=== PATIENT | male | born 1935 | race Caucasian/White ===

== ENCOUNTER → 2017-05-17 09:02 | Emergency (ER) | payer MEDICARE, MEDICAID ==
[~2017-05-17 09:02] MED LIST: Sulfamethox/Trimethoprim DS 800/160* TAB PO ONE
[2017-05-17 11:59] LABS: Hematocrit 46 % (42-52); Hemoglobin 15.6 g/dl (14.0-18.0); Mean Corpuscular HGB Conc 34 g/dl (31-36); Mean Corpuscular Hemoglobin 30 pg (27-31); Mean Corpuscular Volume 87 fL (80-94); Mean Platelet Volume 6 um3 (7.4-10.4); Red Blood Count 5.26 10^6/ul (4.0-5.4); Red Cell Distribution Width 14 % (10.5-15); White Blood Count 10.3 10^3/ul (3.5-10.8)
--- NOTE | 2017-05-17 12:07 | RAD ---
HISTORY: Weakness COMPARISONS: April 18, 2009 VIEWS: 1: frontal portable view of the chest at 11:32 AM FINDINGS: LINES AND TUBES: None. CARDIOMEDIASTINAL SILHOUETTE: The cardiomediastinal silhouette is normal for portable technique. PLEURA: The costophrenic angles are sharp. No pleural abnormalities are noted. LUNG PARENCHYMA: The lungs are clear. ABDOMEN: The upper abdomen is clear. There is no subphrenic gas. BONES AND SOFT TISSUES: No bone or soft tissue abnormalities are noted. IMPRESSION: NO ACTIVE CARDIOPULMONARY DISEASE.
[2017-05-17 12:15] LABS: Troponin I 0.03 ng/mL (<0.04)
[2017-05-17 12:16] LABS: Albumin 4.2 g/dL (3.2-5.2); BUN/Creatinine Ratio 17.5 (8-20); Calcium 9.6 mg/dL (8.6-10.3); EGFR African American 89.6 (>60); EGFR Non-African American 69.7 (>60); Globulin 2.9 g/dL (2-4); Potassium 3.4 mmol/L (3.5-5.0); Total Bilirubin 0.7 mg/dL (0.2-1.0); Total Protein 7.1 g/dL (6.4-8.9)
--- NOTE | 2017-05-17 12:33 | RAD ---
HISTORY: Weakness COMPARISONS: None TECHNIQUE: Multiple contiguous axial CT scans were obtained of the head without intravenous contrast. FINDINGS: HEMORRHAGE/INFARCT: There is no hemorrhage or acute infarct. MASSES/SHIFT: There is no mass or shift. EXTRA-AXIAL SPACES: There are no extra-axial fluid collections. SULCI AND VENTRICLES: The mild sulci and ventricles are normal in size and position for the patient's stated age. CEREBRUM: There is mild hypoattenuation of the periventricular and subcortical white matter. BRAINSTEM: There are no focal parenchymal abnormalities. CEREBELLUM: There are no focal parenchymal abnormalities. VESSELS: The vessels are grossly normal. PARANASAL SINUSES: The paranasal sinuses are clear. ORBITS: The orbits are unremarkable. BONES AND SOFT TISSUE: No bone or soft tissue abnormalities are noted. OTHER: None IMPRESSION: NO ACUTE INTRACRANIAL PATHOLOGY. MILD DIFFUSE INVOLUTIONAL CHANGE WITH CHRONIC SMALL VESSEL ISCHEMIC CHANGES.
[2017-05-17 12:38] LABS: Urine Bacteria Absent (Absent); Urine Bilirubin Negative (Negative); Urine Glucose Negative (Negative); Urine Nitrite Negative (Negative)
[2017-05-17 13:24] VITALS: BP 107/67
--- NOTE | 2017-05-22 12:42 | ED ---
Kb Wilson Alfonso, scribed for Candelario Monique MD on 05/17/17 at 1209 . Complex/Multi-Sys Presentation - HPI Summary HPI Summary: This patient is a 81 year old M BIBA from [facility] to [facility] accompanied by daughter and granddaughter with a chief complaint of diffuse myalgia since waking up this morning at approximately 0500. The patient rates the aching pain 5/10 in severity. Symptoms aggravated by nothing. Symptoms alleviated by spontaneous resolution. Patient reports tremors, right sided headache, I kept asking for my and she about a year ago, rhinorrhea, cough, and urinary incontinency (chronic). Daughter reports bilateral extremity numbness, progressively worsening confusion which is worse at night and AMS. Patient denies CP, SOB, vomiting, diarrhea, dysuria, and hematuria. He had similar symptoms in the past and was diagnosed with a UTI. He sleeps in a recliner. He denies ETOH use. 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 - History Of Current Complaint Chief Complaint: EDGeneral Time Seen by Provider: 05/17/17 11:14 Hx Obtained From: Patient, Family/Ballistics Expert Onset/Duration: Sudden Onset - 0500 waking up today, Still Present Timing: Constant Character: Dull - aching Aggravating Factor(s): nothing Alleviating Factor(s): spontaneous resolution Associated Signs And Symptoms: Positive: Other - Patient reports tremors, right sided headache, I kept asking for my and she about a year ago, rhinorrhea, cough, and urinary incontinency (chronic). Daughter reports bilateral extremity numbness, progressively worsening confusion which is worse at night and AMS. Patient denies CP, SOB, vomiting, diarrhea, dysuria, and hematuria. - Allergies/Home Medications Allergies/Adverse Reactions: Allergies Allergy/AdvReac Type Severity Reaction Status Date / Time No Known Allergies Allergy Verified 05/30/16 10:57 PMH/Surg Hx/FS Hx/Imm Hx Endocrine/Hematology History: Reports: Hx Diabetes - "borderline" Cardiovascular History: Reports: Hx Coronary Artery Disease - ATHEROSCLEROTIC HEART DISEASE, Hx Hypertension, Other Cardiovascular Problems/Disorders - HX OF RIGHT CAROTID ENDARARECTOMY / CHOLESTEROL CONTROL WITH MEDS Respiratory History: Reports: Hx Sleep Apnea GI History: Reports: Hx Hiatal Hernia - HX OF, Hx Irritable Bowel - HX OF - NO PROBLEMS NOW History: Reports: Other Problems/Disorders Musculoskeletal History: Reports: Hx Arthritis - BACK, BILATERAL ARMS AND LEGS, Hx Tendonitis Sensory History: Reports: Hx Cataracts - HX OF, Hx Contacts or Glasses - GLASSES , Hx Glaucoma - LEFT Denies: Hx Hearing Aid Opthamlomology History: Reports: Hx Cataracts - HX OF, Hx Contacts or Glasses - GLASSES, Hx Glaucoma - LEFT Neurological History: Reports: Hx Headaches Psychiatric History: Reports: Hx Depression - HX OF WHEN RECENTLY - NO PROBLEMS NOW - Surgical History Surgery Procedure, Year, and Place: hernia, appy, carotid stents and cleaning Hx Anesthesia Reactions: Yes - WITH ONE THERE WAS SOME HALLUCINATIONS Infectious Disease History: Yes Infectious Disease History: Denies: Traveled Outside the [place] in Last 30 Days - Family History Known Family History: Positive: Other - Rheumatoid arthritis - Social History Alcohol Use: None Substance Use Type: Reports: None Smoking Status (MU): Former Smoker Type: Cigarettes Have You Smoked in the Last Year: No Review of Systems Positive: Other - Tremors. Negative: Fever, Chills Negative: Erythema Positive: Nasal Discharge. Negative: Sore Throat Negative: Chest Pain Positive: Cough. Negative: Shortness Of Breath Negative: Abdominal Pain, Vomiting, Diarrhea, Nausea Positive: incontinence. Negative: dysuria, hematuria Positive: Myalgia. Negative: Edema Negative: Rash Neurological: Other - I kept asking for my and she about a year ago, bilateral extremity numbness, progressively worsening confusion which is worse at night and AMS; Negative dizziness Positive: Headache - right sided All Other Systems Reviewed And Are Negative: Yes Physical Exam - Summary Physical Exam Summary: Constitutional: Well-developed, Well-nourished, Alert. (-) Distressed Skin: Warm, Dry, urinary incontinence on gown. HENT: Normocephalic; Atraumatic Eyes: Conjunctiva normal Neck: Musculoskeletal ROM normal neck. (-) JVD, (-) Stridor, (-) Tracheal deviation Cardio: Rhythm regular, rate normal, Heart sounds normal; Intact distal pulses; The pedal pulses are 2+ and symmetric. Radial pulses are 2+ and symmetric. (-) Murmur Pulmonary/Chest wall: Effort normal. (-) Respiratory distress, (-) Wheezes, (-) Rales Abd: Soft, mild suprapubic tenderness, (-) Distension, (-) Guarding, (-) Rebound Musculoskeletal: (-) Edema Lymph: (-) Cervical adenopathy Neuro: Alert, Oriented x3 Psych: Mood and affect Normal Triage Information Reviewed: Yes Vital Signs On Initial Exam: Initial Vitals Temp Pulse Resp BP Pulse Ox 98.2 F 75 15 113/72 100 05/17/17 09:12 05/17/17 09:12 05/17/17 09:12 05/17/17 09:12 05/17/17 09:12 Vital Signs Reviewed: Yes - Anne Coma Scale Coma Scale Total: 15 Diagnostics - Vital Signs Vital Signs Temp Pulse Resp BP Pulse Ox 05/17/17 09:12 98.2 F 75 15 113/72 100 - Laboratory Lab Results: Lab Results 05/17/17 Range/Units 11:45 WBC 10.3 (3.5-10.8) 10^3/ul RBC 5.26 (4.0-5.4) 10^6/ul Hgb 15.6 (14.0-18.0) g/dl Hct 46 (42-52) % MCV 87 (80-94) fL MCH 30 (27-31) pg MCHC 34 (31-36) g/dl RDW 14 (10.5-15) % Plt Count 221 (150-450) 10^3/ul MPV 6 L (7.4-10.4) um3 Neut % (Auto) 65.1 (38-83) % Lymph % (Auto) 24.8 L (25-47) % Slope % (Auto) 7.7 (1-9) % Eos % (Auto) 1.4 (0-6) % Baso % (Auto) 1.0 (0-2) % Absolute Neuts (auto) 6.7 (1.5-7.7) 10^3/ul Absolute Lymphs (auto) 2.6 (1.0-4.8) 10^3/ul Absolute Monos (auto) 0.8 (0-0.8) 10^3/ul Absolute Eos (auto) 0.1 (0-0.6) 10^3/ul Absolute Basos (auto) 0.1 (0-0.2) 10^3/ul Absolute Nucleated RBC 0 10^3/ul Nucleated RBC % 0 Result Diagrams: 05/17/17 11:45 05/17/17 11:45 Lab Statement: Any lab studies that have been ordered have been reviewed, and results considered in the medical decision making process. - Radiology CXR Radiology Interpretation Completed By: Radiologist - NO ACTIVE CARDIOPULMONARY DISEASE. ED physician has reviewed this radiology report and agrees. - CT Brain CT Interpretation Completed By: Radiologist - NO ACUTE INTRACRANIAL PATHOLOGY. MILD DIFFUSE INVOLUTIONAL CHANGE WITH CHRONIC SMALL VESSEL ISCHEMIC CHANGES. ED physician has reviewed this radiology report and agrees. - EKG 1147 Cardiac Rate: NL - BPM 75 EKG Rhythm: Sinus Rhythm EKG Interpretation: No STEMI Complex Multi-Symp Course/Dx Assessment/Plan: This patient is a 81 year old M BIBA from [facility] to [facility] accompanied by daughter and granddaughter with a chief complaint of diffuse myalgia since waking up this morning at approximately 0500. The patient rates the aching pain 5/10 in severity. Symptoms aggravated by nothing. Symptoms alleviated by spontaneous resolution. Patient reports tremors, right sided headache, I kept asking for my and she about a year ago, rhinorrhea, cough, and urinary incontinency (chronic). Daughter reports bilateral extremity numbness, progressively worsening confusion which is worse at night and AMS. Patient denies CP, SOB, vomiting, diarrhea, dysuria, and hematuria. He had similar symptoms in the past and was diagnosed with a UTI. He sleeps in a recliner. He denies ETOH use. 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 An EKG reveals NSR. CXR reveals NO ACTIVE CARDIOPULMONARY DISEASE. ED physician has reviewed this radiology report and agrees. Brain CT reveals NO ACUTE INTRACRANIAL PATHOLOGY. MILD DIFFUSE INVOLUTIONAL CHANGE WITH CHRONIC SMALL VESSEL ISCHEMIC CHANGES. ED physician has reviewed this radiology report and agrees. Patient is nontoxic appearing. Urine cultures are pending. Patient will be discharged with prescription for Bactrim and follow up from PCP. The patient is agreeable with this plan. - Diagnoses Provider Diagnoses: Dementia, suspected fever, Urinary incontinence Discharge - Discharge Plan Condition: Stable Disposition: HOME Prescriptions: Sulfamethox/Trimethoprim DS* [Bactrim DS 800/160 TAB*] 1 tab PO BID #6 tab Patient Education Materials: Urinary Incontinence (ED), Dementia (ED) Referrals: Arjun Rowell MD [Primary Care Provider] - 3 Days Additional Instructions: RETURN TO THE EMERGENCY DEPARTMENT FOR CHANGING OR WORSENING SYMPTOMS. The documentation as recorded by the Kb ray Alfonso accurately reflects the service I personally performed and the decisions made by me, Candelario Monique MD.
== END | disposition home or self-care (01) ==
LOC: ED 09:02
DX: F03.90 Unspecified dementia, unspecified severity, without behavioral disturbance, psychotic disturbance, mood disturbance, and anxiety (principal); R32 Unspecified urinary incontinence; R50.9 Fever, unspecified
CPT/HCPCS: 36415; 70450; 71010; 80053; 81003; 81015; 83605; 84484; 85025; 87086; 93005; 99283; A9270-GY

== ENCOUNTER 2017-07-26 08:14 | Emergency (ER) | payer MEDICARE, MEDICAID ==
[2017-07-26] MEDS ORDERED: Acetaminophen TAB* 325 MG PO ONE (08:36)
--- NOTE | 2017-07-26 09:08 | RAD ---
HISTORY: Right hip pain, fall COMPARISONS: December 17, 2016 VIEWS: 4, Frontal view of the pelvis with frontal and frog-leg views of the right hip FINDINGS: BONE DENSITY: There is diffuse osteopenia. BONES: There is no displaced fracture. JOINTS: There is osteoarthritis of the hips and SI joints bilaterally. ALIGNMENT: There is no dislocation. SOFT TISSUES: There is peripheral arterial calcification. OTHER FINDINGS: Degenerative changes are noted of the spine IMPRESSION: 1. OSTEOPENIA. 2. OSTEOARTHRITIS. 3. PERIPHERAL ARTERIAL DISEASE. 4. NO RADIOGRAPHIC EVIDENCE FOR HIP FRACTURE. X-RAYS MAY BE NEGATIVE WITH NONDISPLACED HIP FRACTURE, IF THERE IS PERSISTENT CLINICAL CONCERN, RECOMMEND CONSIDERATION OF MRI. IN THE SETTING OF CONTRAINDICATION TO MRI OR LIMITATION IN EMERGENT ACCESS TO MRI, CT WOULD BE SUGGESTED.
[2017-07-26 11:33] VITALS: BP 112/66
--- NOTE | 2017-07-26 20:30 | ED ---
Marcio Wilson Gabriel, scribed for Carisa Lawton MD on 07/26/17 at 0906 . Lower Extremity - HPI Summary HPI Summary: This patient is a 82 year old M BIBA to [facility] accompanied by daughter and son in law with a chief complaint of hip pain since 3 nights ago. The patient rates the pain 3/10 in severity in the back and a 8/10 in the hip. Patient reports LE weakness, back pain, and diffuse ABD pain. Patient denies CP, and SOB. Patient states he just got out of bed 3 nights ago and had a bad taste in his mouth and asked the girl who walked by for ice water. Then he leaned on the door because he felt woozy and his legs collapsed, he states he did not hit his head on the fall. Patient has had previous falls and ambulates with a cane. 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 Mechanism Of Injury: Fall From A Standing Position Onset of Pain: Immediate Onset/Duration: Days - 3 Severity Initially: Mild Severity Currently: Mild Pain Intensity: 5 Pain Scale Used: 0-10 Numeric Timing: Constant Location: Other - at left hip Character Of Pain: Aching Associated Signs And Symptoms: Positive: Negative - CP and SOB, Other - LE weakness, back pain, and diffuse ABD pain Aggravating Factor(s): Movement Alleviating Factor(s): Nothing Able to Bear Weight: No - Allergies/Home Medications Allergies/Adverse Reactions: Allergies Allergy/AdvReac Type Severity Reaction Status Date / Time No Known Allergies Allergy Verified 07/26/17 08:21 PMH/Surg Hx/FS Hx/Imm Hx Previously Healthy: No Endocrine/Hematology History: Reports: Hx Diabetes - "borderline" Cardiovascular History: Reports: Hx Coronary Artery Disease - ATHEROSCLEROTIC HEART DISEASE, Hx Hypertension, Other Cardiovascular Problems/Disorders - HX OF RIGHT CAROTID ENDARARECTOMY / CHOLESTEROL CONTROL WITH MEDS Respiratory History: Reports: Hx Sleep Apnea GI History: Reports: Hx Hiatal Hernia - HX OF, Hx Irritable Bowel - HX OF - NO PROBLEMS NOW History: Reports: Other Problems/Disorders Musculoskeletal History: Reports: Hx Arthritis - BACK, BILATERAL ARMS AND LEGS, Hx Tendonitis Sensory History: Reports: Hx Cataracts - HX OF, Hx Contacts or Glasses - GLASSES , Hx Glaucoma - LEFT Denies: Hx Hearing Aid Opthamlomology History: Reports: Hx Cataracts - HX OF, Hx Contacts or Glasses - GLASSES, Hx Glaucoma - LEFT Neurological History: Reports: Hx Headaches Psychiatric History: Reports: Hx Depression - HX OF WHEN RECENTLY - NO PROBLEMS NOW - Surgical History Surgery Procedure, Year, and Place: hernia, appy, carotid stents and cleaning Hx Anesthesia Reactions: Yes - WITH ONE THERE WAS SOME HALLUCINATIONS Infectious Disease History: No Infectious Disease History: Denies: Traveled Outside the [place] in Last 30 Days - Family History Known Family History: Positive: Other - Rheumatoid arthritis Negative: Cardiac Disease, Diabetes Family History: No cancer - Social History Lives: At [facility] Alcohol Use: None Substance Use Type: Reports: None Smoking Status (MU): Former Smoker Type: Cigarettes Have You Smoked in the Last Year: No Review of Systems Negative: Chest Pain Negative: Shortness Of Breath Positive: Abdominal Pain - diffuse Positive: Other - hip pain Positive: Weakness - in LE All Other Systems Reviewed And Are Negative: Yes Physical Exam - Summary Physical Exam Summary: Appearance: Well-appearing, mild pain distress, Well-nourished Skin: Warm, color reflects adequate perfusion Head: Normal Head/Face Eyes: Conjunctiva clear ENT: Normal appearance Neck: Supple Respiratory: Lungs clear, Normal breath sounds, no respiratory distress Cardio: RRR, No murmur, pulses normal, brisk capillary refill Abdomen: soft, nontender Bowel sounds: present Musculoskeletal: Strength Intact/ ROM intact, Lateral part of right hip is tender with some ecchymosis Neuro: Alert, muscle tone normal, ED: facial symmetry, speech normal, sensory/ motor intact Detailed Neuro Exam: A&Ox3, CN II-XII intact, Motor function 5/5, Sensations intact, Gait WNL Psychological: Normal Triage Information Reviewed: Yes Vital Signs On Initial Exam: Initial Vitals Temp Pulse Resp BP Pulse Ox 98.1 F 75 18 116/73 98 07/26/17 08:17 07/26/17 08:17 07/26/17 08:17 07/26/17 08:17 07/26/17 08:17 Vital Signs Reviewed: Yes - Lemmon Coma Scale Coma Scale Total: 15 Diagnostics - Vital Signs Vital Signs Temp Pulse Resp BP Pulse Ox 07/26/17 08:45 71 98 07/26/17 08:17 98.1 F 75 18 116/73 98 - Laboratory Lab Statement: Any lab studies that have been ordered have been reviewed, and results considered in the medical decision making process. - Radiology hip xray Radiology Interpretation Completed By: Radiologist - 1. OSTEOPENIA. 2. OSTEOARTHRITIS. 3. PERIPHERAL ARTERIAL DISEASE. 4. NO RADIOGRAPHIC EVIDENCE FOR HIP FRACTURE. X-RAYS MAY BE NEGATIVE WITH NONDISPLACED HIP FRACTURE, IF THERE IS PERSISTENT CLINICAL CONCERN, RECOMMEND CONSIDERATION OF MRI. IN THE SETTING OF CONTRAINDICATION TO MRI OR LIMITATION IN EMERGENT ACCESS TO MRI, CT WOULD BE SUGGESTED. ED physician has reviewed this radiology report. Re-Evaluation - Re-Evaluation First Eval Re-Evaluation Time: 11:28 Change: Unchanged Comment: Pt is ambulating to the bathroom, pain is controlled, and was informed of results. Lower Extremity Course/Dx - Course Assessment/Plan: Hip Xray reveals, per radiologist, 1. OSTEOPENIA. 2. OSTEOARTHRITIS. 3. PERIPHERAL ARTERIAL DISEASE. 4. NO RADIOGRAPHIC EVIDENCE FOR HIP FRACTURE. X-RAYS MAY BE NEGATIVE WITH NONDISPLACED. HIP FRACTURE, IF THERE IS PERSISTENT CLINICAL CONCERN, RECOMMEND CONSIDERATION OF MRI. IN. THE SETTING OF CONTRAINDICATION TO MRI OR LIMITATION IN EMERGENT ACCESS TO MRI, CT WOULD. BE SUGGESTED. In the ED course the patient was given Tylenol. Patient will be discharged and follow up from Dr. Aguilera. The patient is agreeable with this plan. - Diagnoses Provider Diagnoses: Contusion, hip Discharge - Discharge Plan Condition: Stable Disposition: HOME Patient Education Materials: Hip Contusion (ED) Referrals: Aleksandra Aguilera MD [Primary Care Provider] - The documentation as recorded by the Marcio ray Gabriel accurately reflects the service I personally performed and the decisions made by Jered morrow Barbara J, MD.
== END 2017-07-26 11:32 | disposition home or self-care (01) ==
LOC: ED 08:14
DX: S70.01XA Contusion of right hip, initial encounter (principal); W19.XXXA Unspecified fall, initial encounter; Y93.9 Activity, unspecified; Y92.9 Unspecified place or not applicable; Y99.9 Unspecified external cause status; M85.88 Other specified disorders of bone density and structure, other site; M16.11 Unilateral primary osteoarthritis, right hip; I73.9 Peripheral vascular disease, unspecified; Z87.891 Personal history of nicotine dependence
CPT/HCPCS: 99282; A9270-GY

== ENCOUNTER 2018-03-11 05:07 | Emergency (ER) | payer MEDICARE, MEDICAID ==
[2018-03-11] MEDS ORDERED: traMADol TAB* 50 MG PO ONE (05:25)
--- NOTE | 2018-03-11 05:27 | ED ---
Complex/Multi-Sys Presentation - HPI Summary HPI Summary: This is flor Harden documenting for attending Dr. Eric Marmolejo MD. A 82 y/o male EMANUEL presents to ED c/o back pain reaching 7/10 in severity. Additionally c/o shoulder pain and headache. As per triage, "Patient arrived via EMS from [facility]. Patient reports falling out of bed then getting back in bed and sleeping for some time. Upon waking, patient reports back, shoulder and head pain". According to the patient, all four corners of his abdomen are painful. It was noted that the patient is diaphoretic (after bed). Patient lives in custodial. Currently on no blood thinners. - History Of Current Complaint Chief Complaint: EDGeneral Hx Obtained From: Patient Onset/Duration: Sudden Onset, Still Present Timing: Constant Severity Currently: Severe Severity Initially: Severe Aggravating Factor(s): NOTHING Alleviating Factor(s): NOTHING Associated Signs And Symptoms: Positive: Headache, Abdominal Pain, Back Pain, Diaphoresis. Negative: Fever - Allergies/Home Medications Allergies/Adverse Reactions: Allergies Allergy/AdvReac Type Severity Reaction Status Date / Time No Known Allergies Allergy Verified 07/26/17 08:21 PMH/Surg Hx/FS Hx/Imm Hx Endocrine/Hematology History: Reports: Hx Diabetes - "borderline" Cardiovascular History: Reports: Hx Coronary Artery Disease, Hx Hypercholesterolemia, Hx Hypertension, Other Cardiovascular Problems/Disorders - HX OF RIGHT CAROTID ENDARTERECTOMY Respiratory History: Reports: Hx Sleep Apnea GI History: Reports: Hx Hiatal Hernia, Hx Irritable Bowel History: Reports: Other Problems/Disorders Musculoskeletal History: Reports: Hx Arthritis - BACK, BILATERAL ARMS AND LEGS, Hx Tendonitis Sensory History: Reports: Hx Cataracts - HX OF, Hx Contacts or Glasses - GLASSES , Hx Glaucoma - LEFT Denies: Hx Hearing Aid Opthamlomology History: Reports: Hx Cataracts - HX OF, Hx Contacts or Glasses - GLASSES, Hx Glaucoma - LEFT Neurological History: Reports: Hx Headaches Psychiatric History: Reports: Hx Depression - HX OF WHEN - NO PROBLEMS NOW - Surgical History Surgery Procedure, Year, and Place: hernia, appy, carotid stents and cleaning Hx Anesthesia Reactions: Yes - WITH ONE THERE WAS SOME HALLUCINATIONS Infectious Disease History: No Infectious Disease History: Denies: Traveled Outside the [place] in Last 30 Days - Family History Known Family History: Positive: Other - Rheumatoid arthritis Negative: Cardiac Disease, Diabetes Family History: No cancer - Social History Alcohol Use: None Substance Use Type: Reports: None Smoking Status (MU): Former Smoker Type: Cigarettes Have You Smoked in the Last Year: No Review of Systems Positive: Skin Diaphoresis. Negative: Fever Positive: Abdominal Pain Positive: Other - POSITIVE: back and shoulder pain Positive: Headache All Other Systems Reviewed And Are Negative: Yes Physical Exam - Summary Physical Exam Summary: VITAL SIGNS: Reviewed. GENERAL: Patient is a well-developed and nourished male who is lying comfortable in the stretcher. Patient is not in any acute respiratory distress. HEAD AND FACE: No signs of trauma. No ecchymosis, hematomas or skull depressions. No sinus tenderness. EYES: PERRLA, EOMI x 2, No injected conjunctiva, no nystagmus. EARS: Hearing grossly intact. Ear canals and tympanic membranes are within normal limits. MOUTH: Oropharynx within normal limits. NECK: Supple, trachea is midline, no adenopathy, no JVD, no carotid bruit, no c- spine tenderness, neck with full ROM. CHEST: Symmetric, mild tenderness on right chest wall LUNGS: Clear to auscultation bilaterally. No wheezing or crackles. CVS: Regular rate and rhythm, S1 and S2 present, no murmurs or gallops appreciated. ABDOMEN: Soft, non-tender. No signs of distention. No rebound no guarding, and no masses palpated. Bowel sounds are normal. EXTREMITIES: FROM in all major joints, no edema, no cyanosis or clubbing. No hip pain. Patient is able to both both extremities. NEURO: Alert and oriented x 3. No acute neurological deficits. Speech is normal and follows commands. SKIN: Dry and warm GCS: 15 Triage Information Reviewed: Yes Vital Signs On Initial Exam: Initial Vitals Temp Pulse Resp BP Pulse Ox 98.2 F 79 20 146/81 96 03/11/18 05:09 03/11/18 05:09 03/11/18 05:09 03/11/18 05:09 03/11/18 05:09 Vital Signs Reviewed: Yes Diagnostics - Vital Signs Vital Signs Temp Pulse Resp BP Pulse Ox 03/11/18 05:09 98.2 F 79 20 146/81 96 - Laboratory Lab Statement: Any lab studies that have been ordered have been reviewed, and results considered in the medical decision making process. - Radiology CXR Radiology Interpretation Completed By: ED Physician - No acute process. Pending official report. - CT BRAIN CT CT Interpretation Completed By: Radiologist - No acute findings. ED physician reviewed this radiology report. Re-Evaluation - Re-Evaluation First Eval Re-Evaluation Time: 06:22 Comment: Patient is feeling much better. Complex Multi-Symp Course/Dx Course Of Treatment: 82 y/o male EMANUEL presents to ED c/o back pain reaching 7/ 10 in severity. Additionally c/o shoulder pain and headache. A CXR revealed no acute process. A CT Brain revealed no acute findings. In the ED course, the patient recieved Tramadol. During reevaluation, the patient revealed that he felt much better. Patient will be discharged with a diagnosis fall with no injury and contusion. Patient is to follow up with PCP in 1-2 days. Pt is agreeable with this plan. - Diagnoses Provider Diagnoses: Fall with no injury, Contusion Discharge - Sign-Out/Discharge Documenting (check all that apply): Patient Departure - DISCHARGE - Discharge Plan Condition: Stable Disposition: HOME Prescriptions: traMADol TAB* [Ultram*] 50 mg PO Q6HR PRN #20 tab MDD 4 PRN Reason: Pain Patient Education Materials: Contusion in Adults (ED), Fall Prevention (ED) Referrals: Aleksandra Aguilera MD [Primary Care Provider] - 2 Days Additional Instructions: RETURN TO ED FOR ANY NEW OR WORSENING SYMPTOMS.
[2018-03-11 06:55] VITALS: BP 134/90
--- NOTE | 2018-03-11 07:33 | RAD ---
HISTORY: fall COMPARISONS: May 17, 2017 VIEWS: 2: frontal portable view of the chest at 6:03 AM FINDINGS: LINES AND TUBES: None. CARDIOMEDIASTINAL SILHOUETTE: The cardiomediastinal silhouette is stable. PLEURA: The costophrenic angles are sharp. No pleural abnormalities are noted. LUNG PARENCHYMA: There is stable mild chronic reticular markings markings consistent with mild chronic interstitial disease. ABDOMEN: The upper abdomen is clear. There is no subphrenic gas. BONES AND SOFT TISSUES: No bone or soft tissue abnormalities are noted. IMPRESSION: NO ACTIVE CARDIOPULMONARY DISEASE. R0
--- NOTE | 2018-03-11 07:57 | RAD ---
HISTORY: fall, head pain COMPARISONS: May 17, 2017 TECHNIQUE: Multiple contiguous axial CT scans were obtained of the head without intravenous contrast. FINDINGS: HEMORRHAGE/INFARCT: There is no hemorrhage or acute infarct. MASSES/SHIFT: There is no mass or shift. EXTRA-AXIAL SPACES: There are no extra-axial fluid collections. SULCI AND VENTRICLES: There is diffuse and proportional enlargement of the sulci and ventricles. CEREBRUM: There is hypoattenuation of the periventricular and subcortical white matter. BRAINSTEM: There are no focal parenchymal abnormalities. CEREBELLUM: There are no focal parenchymal abnormalities. VESSELS: There is calcification of the cavernous segments of the internal carotid arteries bilaterally. PARANASAL SINUSES: The paranasal sinuses are clear. ORBITS: The orbits are unremarkable. BONES AND SOFT TISSUE: No bone or soft tissue abnormalities are noted. OTHER: None IMPRESSION: NO ACUTE INTRACRANIAL PATHOLOGY. DIFFUSE INVOLUTIONAL CHANGE WITH CHRONIC SMALL VESSEL ISCHEMIC CHANGES. R0
== END 2018-03-11 06:56 | disposition home or self-care (01) ==
LOC: ED 05:07
DX: M54.9 Dorsalgia, unspecified (principal); M25.519 Pain in unspecified shoulder; R51 Headache; Z91.81 History of falling; Z87.891 Personal history of nicotine dependence
CPT/HCPCS: 70450; 71045; 99283; A9270-GY

== ENCOUNTER → 2019-02-27 03:30 | Emergency (ER) | payer MEDICARE, OTHER ==
--- NOTE | 2019-02-27 04:33 | ED ---
Adult Trauma - HPI Summary HPI Summary: Patient is a 83 y/o M presenting to ED via EMS from [facility] after mechanical fall. It is reported that the patient was getting up to go to the bathroom when he tripped and fell, hitting his right side of head and right knee. He is on Plavix. Patient is unsure of LOC but endorses dizziness. He had complaints of pain at neck as well. No nausea reported. Hx of chronic back pain , knee pain. Family member reports many falls, patient does not use cane or walker as supposed to. Patient is alert and oriented x 1, Hx of dementia, level 5 caveat. On triage, pain is rated 7/10, movement of right knee aggravates. Home medications and allergies are reviewed. - History of Current Complaint Chief Complaint: EDFall Stated Complaint: FALL PER EMS Time Seen by Provider: 02/27/19 04:24 Hx Obtained From: Family/Motorboat Mechanic Inboard/Outboard Hx From Patient Unobtainable Due To: Dementia Mechanism of Injury: Fall Loss of Consciousness: unsure Restraints: None Onset/Duration: Still Present Onset of Pain: Prior to Arrival Current Severity: Severe Pain Intensity: 7 Pain Scale Used: 0-10 Numeric Location: Head, Neck, Other - right knee Aggravating Factor(s): Movement - of right knee Alleviating Factor(s): Nothing Associated Signs & Symptoms: Positive: Other: - dizziness. Negative: Nausea/ Vomiting - Allergy/Home Medications Allergies/Adverse Reactions: Allergies Allergy/AdvReac Type Severity Reaction Status Date / Time No Known Allergies Allergy Verified 07/26/17 08:21 PMH/Surg Hx/FS Hx/Imm Hx Endocrine/Hematology History: Reports: Hx Diabetes - "borderline" Cardiovascular History: Reports: Hx Coronary Artery Disease, Hx Hypercholesterolemia, Hx Hypertension, Other Cardiovascular Problems/Disorders - HX OF RIGHT CAROTID ENDARTERECTOMY Respiratory History: Reports: Hx Sleep Apnea GI History: Reports: Hx Hiatal Hernia, Hx Irritable Bowel History: Reports: Other Problems/Disorders Musculoskeletal History: Reports: Hx Arthritis - BACK, BILATERAL ARMS AND LEGS, Hx Tendonitis Sensory History: Reports: Hx Cataracts - HX OF, Hx Contacts or Glasses - GLASSES , Hx Glaucoma - LEFT Denies: Hx Hearing Aid Opthamlomology History: Reports: Hx Cataracts - HX OF, Hx Contacts or Glasses - GLASSES, Hx Glaucoma - LEFT Neurological History: Reports: Hx Headaches Psychiatric History: Reports: Hx Depression - HX OF WHEN - NO PROBLEMS NOW - Surgical History Surgery Procedure, Year, and Place: hernia, appy, carotid stents and cleaning Hx Anesthesia Reactions: Yes - WITH ONE THERE WAS SOME HALLUCINATIONS Infectious Disease History: No Infectious Disease History: Denies: Traveled Outside the [place] in Last 30 Days - Family History Known Family History: Positive: Other - Rheumatoid arthritis Negative: Cardiac Disease, Diabetes Family History: No cancer - Social History Alcohol Use: None Substance Use Type: Reports: None Smoking Status (MU): Former Smoker Type: Cigarettes Have You Smoked in the Last Year: No Review of Systems Negative: Nausea Musculoskeletal: Other - positive - fall, head injury, right knee injury, neck pain Neurological: Other - positive - dizziness All Other Systems Reviewed And Are Negative: Yes Physical Exam - Summary Physical Exam Summary: VITAL SIGNS: Reviewed. GENERAL: Patient is a well-developed and nourished male who is lying comfortable in the stretcher. Patient is not in any acute respiratory distress. HEAD AND FACE: No signs of trauma. No ecchymosis, hematomas or skull depressions. No sinus tenderness. EYES: PERRLA, EOMI x 2, No injected conjunctiva, no nystagmus. EARS: Hearing grossly intact. Ear canals and tympanic membranes are within normal limits. MOUTH: Oropharynx within normal limits. NECK: Supple, trachea is midline, no adenopathy, no JVD, no carotid bruit, no c- spine tenderness, neck with full ROM CHEST: Symmetric, no tenderness at palpation LUNGS: Clear to auscultation bilaterally. No wheezing or crackles. CVS: Regular rate and rhythm, S1 and S2 present, no murmurs or gallops appreciated. ABDOMEN: Soft, non-tender. No signs of distention. No rebound no guarding, and no masses palpated. Bowel sounds are normal. EXTREMITIES: FROM in all major joints, no edema, no cyanosis or clubbing. NEURO: Alert and oriented x 3. No acute neurological deficits. Speech is normal and follows commands. SKIN: Dry and warm Triage Information Reviewed: Yes Vital Signs On Initial Exam: Initial Vitals Temp Pulse Resp BP Pulse Ox 97.5 F 77 18 138/88 98 02/27/19 03:32 02/27/19 03:32 02/27/19 03:32 02/27/19 03:32 02/27/19 03:32 Vital Signs Reviewed: Yes Diagnostics - Vital Signs Vital Signs Temp Pulse Resp BP Pulse Ox 02/27/19 04:00 71 100 02/27/19 03:44 72 113/76 100 02/27/19 03:40 74 100 02/27/19 03:32 97.5 F 77 18 138/88 98 - Laboratory Lab Statement: Any lab studies that have been ordered have been reviewed, and results considered in the medical decision making process. - Radiology right forearm x-ray Radiology Interpretation Completed By: ED Physician Summary of Radiographic Findings: No fracture, pending official report. - CT BRAIN CT CT Interpretation Completed By: Radiologist Summary of CT Findings: IMPRESSION: No acute intracranial findings. THIS REPORT WAS REVIEWED BY DR. RICH. CERVICAL SPINE CT CT Interpretation Completed By: Radiologist Summary of CT Findings: IMPRESSION: 1. No acute fracture involving the cervical vertebral bodies or posterior. elements. 2. No pathologic subluxation. 3. Multilevel degenerative cervical disc disease and facet disease. No. significant central canal stenosis. Variable degrees of neural foraminal. narrowing secondary to degenerative changes of the uncovertebral joints and. facet joints. THIS REPORT WAS REVIEWED BY DR. RICH. Adult Trauma Course/Dx - Course Course Of Treatment: Patient is a 83 y/o M presenting to ED via EMS from [facility] after mechanical fall. It is reported that the patient was getting up to go to the bathroom when he tripped and fell, hitting his right side of head and right knee. He is on Plavix. Patient is unsure of LOC but endorses dizziness. He had complaints of pain at neck as well No nausea reported. Family member reports many falls, patient does not use cane or walker as supposed to. Patient is alert and oriented x 1, Hx of dementia, level 5 caveat. Physical exam unremarkable. Right forearm x-ray was negative. CERVICAL SPINE CT IMPRESSION: 1. No acute fracture involving the cervical vertebral bodies or posterior. elements. 2. No pathologic subluxation. 3. Multilevel degenerative cervical disc disease and facet disease. No. significant central canal stenosis. Variable degrees of neural foraminal. narrowing secondary to degenerative changes of the uncovertebral joints and. facet joints. BRAIN CT IMPRESSION: No acute intracranial findings. Patient will be discharged to home with PCP follow up. - Diagnoses Provider Diagnoses: Fall Discharge - Sign-Out/Discharge Documenting (check all that apply): Patient Departure - discharge Patient Received Moderate/Deep Sedation with Procedure: No - Discharge Plan Condition: Stable Disposition: HOME Patient Education Materials: Fall Prevention for Older Adults (ED) Referrals: Myrna Zimmerman DO [Primary Care Provider] - 3 Days Additional Instructions: RETURN TO ED FOR ANY NEW OR WORSENING SYMPTOMS. FOLLOW UP WITH YOUR PRIMARY CARE PHYSICIAN WITHIN THREE DAYS. - Attestation Statements Document Initiated by Scribe: Yes Documenting Scribe: NACHO ADAMS Provider For Whom Scribe is Documenting (Include Credential): CLEM RICH MD Scribe Attestation: INACHO, scribed for CLEM RICH MD on 02/27/19 at 0652. Status of Scribe Document: Ready
[2019-02-27 06:46] VITALS: BP 127/84
== END | disposition home or self-care (01) ==
LOC: ED 03:30
DX: S09.90XA Unspecified injury of head, initial encounter (principal); M25.561 Pain in right knee; W01.10XA Fall on same level from slipping, tripping and stumbling with subsequent striking against unspecified object, initial encounter; Y92.009 Unspecified place in unspecified non-institutional (private) residence as the place of occurrence of the external cause; Z79.02 Long term (current) use of antithrombotics/antiplatelets; F03.90 Unspecified dementia, unspecified severity, without behavioral disturbance, psychotic disturbance, mood disturbance, and anxiety; I25.10 Atherosclerotic heart disease of native coronary artery without angina pectoris; E78.00 Pure hypercholesterolemia, unspecified; I10 Essential (primary) hypertension; Z87.891 Personal history of nicotine dependence; M50.30 Other cervical disc degeneration, unspecified cervical region
CPT/HCPCS: 70450; 72125; 99283

== ENCOUNTER 2019-08-05 09:54 | Emergency (ER) | payer MEDICARE, OTHER ==
[2019-08-05] MEDS ORDERED: fentaNYL* 50 MCG/ML 2 ML VIAL (100 MCG VIAL) IV SLOW PU ONE (10:46)
[2019-08-05 11:10] LABS: ABS Basophils 0.1 10^3/ul (0-0.2); ABS Eosinophils 0.3 10^3/ul (0-0.6); ABS Lymphocytes 2.5 10^3/ul (1.0-4.8); ABS Monocytes 0.6 10^3/ul (0-0.8); ABS Neutrophils 5.2 10^3/ul (1.5-7.7); Hematocrit 46 % (42-52); Hemoglobin 15.4 g/dL (14.0-18.0); Lymphocyte % 28.7 %; Mean Corpuscular HGB Conc 33 g/dL (31-36); Mean Corpuscular Hemoglobin 30 pg (27-31); Mean Corpuscular Volume 90 fL (80-94); Mean Platelet Volume 6.7 fL (7.4-10.4); Nucleated Red Blood Cells % 0.1; Platelet Count 215 10^3/uL (150-450); Red Blood Count 5.11 10^6 /uL (4.18-5.48); Red Cell Distribution Width 15 % (10-15); White Blood Count 8.6 10^3/uL (3.5-10.8)
[2019-08-05 11:16] LABS: INR 1.05 (0.82-1.09)
--- NOTE | 2019-08-05 11:19 | ED ---
Adult Trauma - HPI Summary HPI Summary: This patient is an 84-year-old male with a history of dementia presenting to the ED after a fall. Patient is from [facility]. He states this wasn't a mechanical fall after a trip. He endorses neck pain, back pain, chest pain, abdominal pain, right shoulder and arm pain. He was brought here by EMS transport. He states his worse symptom is the chest. Denies any shortness of breath. Patient does have dementia and has a difficult time expressing his pain levels as well as his location of pain. Family member at bedside. Family states this is his typical in terms of his dementia. Per staff at [facility] , patient fell directly onto his chest and face. He denies any pain to his face. He denies any LOC, however follows this up with "I cannot recall." According to our records, patient was previously on Plavix, this is unknown at this time. - History of Current Complaint Chief Complaint: EDFall Stated Complaint: FALL PER EMS Time Seen by Provider: 08/05/19 09:55 Hx Obtained From: Patient, Family/Supervisor Malted Milk Ambulatory at the Scene: No Restraints: Lap/Shoulder Onset of Pain: Minutes Onset Severity: Mild Current Severity: Mild Pain Intensity: 8 Pain Scale Used: 0-10 Numeric Location: Head, Neck, Chest, Back, Extremities Character: Aching Aggravating Factor(s): Movement Alleviating Factor(s): Rest Associated Signs & Symptoms: Positive: Abdominal Pain. Negative: SOB, Chest Pain, Cough, Hematuria, Nausea/Vomiting, Loss of Consciousness, Memory Loss Related History: Anticoagulants - Allergy/Home Medications Allergies/Adverse Reactions: Allergies Allergy/AdvReac Type Severity Reaction Status Date / Time No Known Allergies Allergy Verified 07/26/17 08:21 PMH/Surg Hx/FS Hx/Imm Hx Previously Healthy: Yes Endocrine/Hematology History: Reports: Hx Diabetes - "borderline" Cardiovascular History: Reports: Hx Coronary Artery Disease, Hx Hypercholesterolemia, Hx Hypertension, Other Cardiovascular Problems/Disorders - HX OF RIGHT CAROTID ENDARTERECTOMY Respiratory History: Reports: Hx Sleep Apnea GI History: Reports: Hx Hiatal Hernia, Hx Irritable Bowel History: Reports: Other Problems/Disorders Musculoskeletal History: Reports: Hx Arthritis - BACK, BILATERAL ARMS AND LEGS, Hx Tendonitis Sensory History: Reports: Hx Cataracts - HX OF, Hx Contacts or Glasses - GLASSES , Hx Glaucoma - LEFT Denies: Hx Hearing Aid Opthamlomology History: Reports: Hx Cataracts - HX OF, Hx Contacts or Glasses - GLASSES, Hx Glaucoma - LEFT Neurological History: Reports: Hx Headaches Psychiatric History: Reports: Hx Depression - HX OF WHEN - NO PROBLEMS NOW - Surgical History Surgery Procedure, Year, and Place: hernia, appy, carotid stents and cleaning Hx Anesthesia Reactions: Yes - WITH ONE THERE WAS SOME HALLUCINATIONS - Immunization History Hx Pertussis Vaccination: No Immunizations Up to Date: Yes Infectious Disease History: No Infectious Disease History: Denies: Traveled Outside the [place] in Last 30 Days - Family History Known Family History: Positive: Other - Rheumatoid arthritis Negative: Cardiac Disease, Diabetes Family History: No cancer - Social History Occupation: Unemployed Lives: [facility] [employer] [facility] Alcohol Use: None Hx Substance Use: No Substance Use Type: Reports: None Hx Tobacco Use: Yes Smoking Status (MU): Former Smoker Type: Cigarettes Have You Smoked in the Last Year: No Review of Systems Negative: Fever, Chills, Fatigue, Skin Diaphoresis Negative: Palpitations, Chest Pain Negative: Shortness Of Breath, Cough Genitourinary: Negative Positive: no symptoms reported, see HPI Positive: Arthralgia - reports severe pain all over to the back, chest, upper and lower extremities, neck, and head Negative: Rash, Bruising Neurological: Other - pt not oriented - but this is his baseline Negative: Headache, Weakness, Paresthesia, Numbness, Syncope, Slurred Speech Psychological: Normal All Other Systems Reviewed And Are Negative: Yes Physical Exam - Summary Physical Exam Summary: Vital signs stable: 97, heart rate 83, respirations 15, 98% on room air and 128/ 79. GENERAL: Pt arrived from EMS appears to be in pain distress. Wincing. SKIN: Warm and well perfused. No rashes, bruises, discolorations or abrasions. No raccoon eyes. HEAD: Atraumatic, normocephalic without edema, discoloration or evidence of trauma. Facial bones without deformities or tenderness. EYES: PERRL. No scleral icterus or conjunctival injection. Extraocular muscles intact without nystagmus or diplopia. EARS: Normal appearing pinnae. No hemotympanum. NOSE: No discharge, tenderness, laxity. No nasal septal hematoma. MOUTH: No malocclusion or trismus. Moist mucus membranes without blood. Posterior pharynx without erythema or exudate. NECK: Trachea midline. No discolorations or edema. Neck was no immobilized in a cervical collar and prefers not to have one. Endorses pain to the posterior cervical spine, but rotating about the neck side to side and flexing and extending without limitation or pain. CV: Regular rate and rhythm, Normal s1 and s2. No murmurs, rubs, or gallops. PV: Radial pulses 2+ bilaterally and symmetric. Dorsalis pedis pulses 2+ bilaterally and symmetric. 2+ capillary refill. No extremity edema. CHEST: No abrasions or ecchymosis. Chest symmetric with respirations. Anterior chest wall tenderness. No crepitus. No step offs. Lungs are clear to auscultation bilaterally. No rales, rhonchi, wheezing or stridor. ABDOMEN: No ecchymosis or abrasions. Soft, nondistended, nontender. Bowel tones normoactive. No masses or organomegaly. BACK: No abrasions, skin openings, or ecchymosis. Spine without bony tenderness , no step offs. RECTAL: Normal tone. Stool without gross blood. MSK: No gross deformities or discolorations or lesions. Tolerates full range of motion of extremities without tenderness. Endorses pain all over in upper and lower extremities. NEURO: Pt not oriented this is patients baseline. Triage Information Reviewed: Yes Vital Signs On Initial Exam: Initial Vitals Pulse Resp Pulse Ox 83 20 98 08/05/19 10:12 08/05/19 10:12 08/05/19 10:12 Vital Signs Reviewed: Yes Appearance: Positive: Pain Distress Procedures - Sedation Patient Received Moderate/Deep Sedation with Procedure: No Diagnostics - Vital Signs Vital Signs Temp Pulse Resp BP Pulse Ox 08/05/19 10:50 22 08/05/19 10:42 20 136/80 08/05/19 10:35 90 17 114/73 96 08/05/19 10:25 86 18 97 08/05/19 10:16 97.0 F 83 15 128/79 98 08/05/19 10:12 83 20 98 - Laboratory Lab Results: Lab Results 08/05/19 08/05/19 Range/Units 10:59 10:59 WBC 8.6 (3.5-10.8) 10^3/uL RBC 5.11 (4.18-5.48) 10^6 /uL Hgb 15.4 (14.0-18.0) g/dL Hct 46 (42-52) % MCV 90 (80-94) fL MCH 30 (27-31) pg MCHC 33 (31-36) g/dL RDW 15 (10-15) % Plt Count 215 (150-450) 10^3/uL MPV 6.7 L (7.4-10.4) fL Neut % (Auto) 60.3 % Lymph % (Auto) 28.7 % [place] % (Auto) 7.3 % Eos % (Auto) 3.0 % Baso % (Auto) 0.7 % Absolute Neuts (auto) 5.2 (1.5-7.7) 10^3/ul Absolute Lymphs (auto) 2.5 (1.0-4.8) 10^3/ul Absolute Monos (auto) 0.6 (0-0.8) 10^3/ul Absolute Eos (auto) 0.3 (0-0.6) 10^3/ul Absolute Basos (auto) 0.1 (0-0.2) 10^3/ul Absolute Nucleated RBC 0.0 10^3/ul Nucleated RBC % 0.1 INR (Anticoag Therapy) 1.05 (0.82-1.09) Result Diagrams: 08/05/19 10:59 08/05/19 10:59 Lab Statement: Any lab studies that have been ordered have been reviewed, and results considered in the medical decision making process. Adult Trauma Course/Dx - Course Course Of Treatment: Patient was given 50 g fentanyl with good effect. He is endorsing pain all over. CT brain, cervical spine, chest/abdomen/pelvis obtained, all of which is negative for any acute findings. On reexamination, patient is able to sit up in bed, now endorsing less pain. Discussed results with family and patient. Pt OK for discharge at this time. Discharged with dx of fall. - Diagnoses Differential Diagnosis/HQI/PQRI: Positive: Contusion(s), Hematoma(s), Sprain, Strain Provider Diagnoses: Fall Images - Images Full Body (No Head): 1 - erythematous area - no other lesions throughout Discharge ED - Sign-Out/Discharge Documenting (check all that apply): Patient Departure - Discharge Plan Condition: Stable Disposition: HOME Patient Education Materials: Fall Prevention for Older Adults (ED) Referrals: Myrna Zimmerman DO [Primary Care Provider] - Additional Instructions: No acute fractures or other obvious injuries You may be sore for the next few days Tylenol or ibuprofen as well as heat packs for any discomfort - Billing Disposition and Condition Condition: STABLE Disposition: Home - Attestation Statements Provider Attestation: I was available for consultation for this patient. I did not evaluate the patient or participate in any medical decision making or disposition decisions unless I am specifically named in the chart as having consulted on the patient. If I have consulted on the patient, please see my own ED note on the patient encounter. Momo Tan MD
[2019-08-05 11:24] LABS: Albumin 3.9 g/dL (3.2-5.2); Albumin/Globulin Ratio 1.6 (1-3); BUN/Creatinine Ratio 24.7 (8-20); Calcium 9.6 mg/dL (8.6-10.3); EGFR African American 94.1 (>60); EGFR Non-African American 77.8 (>60); Globulin 2.4 g/dL (2-4); Potassium 4.1 mmol/L (3.5-5.0); Total Bilirubin 0.6 mg/dL (0.2-1.0); Total Protein 6.3 g/dL (6.4-8.9)
[2019-08-05] MEDS ORDERED: Iodixanol* (CONTRAST) 320 MG/ML 100 ML SDV IV ONE (11:38)
[2019-08-05 13:32] VITALS: BP 130/83
== END 2019-08-05 13:26 | disposition home or self-care (01) ==
LOC: ED 09:54
DX: R52 Pain, unspecified (principal); W19.XXXA Unspecified fall, initial encounter; Y92.9 Unspecified place or not applicable; F03.90 Unspecified dementia, unspecified severity, without behavioral disturbance, psychotic disturbance, mood disturbance, and anxiety; I25.10 Atherosclerotic heart disease of native coronary artery without angina pectoris; E78.00 Pure hypercholesterolemia, unspecified; I10 Essential (primary) hypertension; Z87.891 Personal history of nicotine dependence
CPT/HCPCS: 36415; 70450; 71260; 72125; 74177; 80053; 83605; 85025; 85610; 96374; 99282; J3010; Q9967

== ENCOUNTER 2019-08-09 04:45 | Emergency (ER) | payer MEDICARE, OTHER ==
--- NOTE | 2019-08-09 05:04 | ED ---
Adult Trauma - HPI Summary HPI Summary: 84 y/o male presented to [facility] by [facility] for an unwitnessed fall sustained [employer] in which he injured his head, low back, and left hip. He denies neck pain. He states he was "helping someone at work when he fell" however per fdc report patient fell out of bed. In the room, he does not seem completely aware of his surroundings and was noted by a towel folder to be more confused than normal post-fall. Patient is a level 5 caveat secondary to dementia. no patient recently seen for fall with negative imaging. - History of Current Complaint Chief Complaint: EDFall Stated Complaint: FALL PER EMS Time Seen by Provider: 08/09/19 04:54 Hx Obtained From: EMS Hx From Patient Unobtainable Due To: Dementia Mechanism of Injury: Fall Current Severity: Moderate Pain Intensity: 5 Pain Scale Used: 0-10 Numeric Aggravating Factor(s): Movement Associated Signs & Symptoms: Positive: Other: - pain in low back, left hip, and head; Negative: neck - Allergy/Home Medications Allergies/Adverse Reactions: Allergies Allergy/AdvReac Type Severity Reaction Status Date / Time No Known Allergies Allergy Verified 08/09/19 05:03 Home Medications: Home Medications Aspirin 81 mg PO DAILY 08/09/19 [History Confirmed 08/09/19] Atorvastatin Calcium [Lipitor] 20 mg PO SEE INSTRUCTIONS 08/09/19 [History Confirmed 08/09/19] Ergocalciferol (Vitamin D2) [Vitamin D2] 50,000 unit PO MONTHLY 08/09/19 [ History Confirmed 08/09/19] Venlafaxine HCl 75 mg PO BID 08/09/19 [History Confirmed 08/09/19] PMH/Surg Hx/FS Hx/Imm Hx Endocrine/Hematology History: Reports: Hx Diabetes - "borderline" Cardiovascular History: Reports: Hx Coronary Artery Disease, Hx Hypercholesterolemia, Hx Hypertension, Other Cardiovascular Problems/Disorders - HX OF RIGHT CAROTID ENDARTERECTOMY Respiratory History: Reports: Hx Sleep Apnea GI History: Reports: Hx Hiatal Hernia, Hx Irritable Bowel History: Reports: Other Problems/Disorders Denies: Hx Renal Disease Musculoskeletal History: Reports: Hx Arthritis - BACK, BILATERAL ARMS AND LEGS, Hx Tendonitis Sensory History: Reports: Hx Cataracts - HX OF, Hx Contacts or Glasses - GLASSES , Hx Glaucoma - LEFT Denies: Hx Hearing Aid Opthamlomology History: Reports: Hx Cataracts - HX OF, Hx Contacts or Glasses - GLASSES, Hx Glaucoma - LEFT Neurological History: Reports: Hx Headaches Psychiatric History: Reports: Hx Depression - HX OF WHEN - NO PROBLEMS NOW - Surgical History Surgical History: Yes Surgery Procedure, Year, and Place: hernia, appy, carotid stents and cleaning Hx Anesthesia Reactions: Yes - WITH ONE THERE WAS SOME HALLUCINATIONS Infectious Disease History: No Infectious Disease History: Denies: Traveled Outside the [place] in Last 30 Days - Family History Known Family History: Positive: Other - Rheumatoid arthritis Negative: Cardiac Disease, Diabetes Family History: No cancer - Social History Alcohol Use: None Hx Substance Use: No Substance Use Type: Reports: None Hx Tobacco Use: Yes Smoking Status (MU): Former Smoker Type: Cigarettes Have You Smoked in the Last Year: No Review of Systems - ROS Summary Review of Systems Summary: Patient is a level 5 caveat secondary to dementia. Positive: Myalgia - left hip, low back. Negative: Other - neck pain Neurological: Other - head injury with fall All Other Systems Reviewed And Are Negative: No - Comments Additional Review of Systems Comments: Level 5 Caveat: patient has dementia Physical Exam - Summary Physical Exam Summary: Constitutional: Well-developed, Well-nourished, Alert HENT: Normocephalic. Atraumatic, No abrasions/contusions, Midface stable, No dental trauma Eyes: EOM normal, PERRL Neck: Trachea midline, No stridor, No cervical step off, No posterior cervical spine tenderness Cardio: Rhythm regular, rate normal, Heart sounds normal, Radial pulses are 2+ and symmetric. Pulmonary/Chest wall: Effort normal, Breath sounds normal, (-) Stridor, Equal chest rise, No rib tenderness Abd: Soft, Appearance normal. (-) Distension, (-) Tenderness. Musculoskeletal: Tenderness of thoracic spine. Tenderness of left proximal hip and knee, mildly internally rotated LLE Neuro: Alert, GCS 14. Strength 5/5 all extremities. Ambulates w steady gait with walker. A&Ox1 Skin: Warm, Dry, Skin intact, ecchymosis of left hip and knee Triage Information Reviewed: Yes Vital Signs On Initial Exam: Initial Vitals Temp Pulse Resp BP Pulse Ox 98.1 F 77 18 148/103 99 08/09/19 04:47 08/09/19 04:47 08/09/19 04:47 08/09/19 04:47 08/09/19 04:47 Vital Signs Reviewed: Yes Completion Of Physical Exam Limited Due To: Dementia, Level 5 - [place] Coma Scale Best Eye Response: 4 - Spontaneous Best Motor Response: 6 - Obeys Commands Best Verbal Response: 4 - Confused Coma Scale Total: 14 Procedures - Sedation Patient Received Moderate/Deep Sedation with Procedure: No Diagnostics - Vital Signs Vital Signs Temp Pulse Resp BP Pulse Ox 08/09/19 04:47 98.1 F 77 18 148/103 99 - Laboratory Result Diagrams: 08/09/19 05:50 08/09/19 05:50 Lab Statement: Any lab studies that have been ordered have been reviewed, and results considered in the medical decision making process. - Radiology cxr Radiology Interpretation Completed By: ED Physician Summary of Radiographic Findings: No acute abnormality. This imaging study has been reviewed and interpreted by the ED physician pending official read. thoracic spine xr Radiology Interpretation Completed By: ED Physician Summary of Radiographic Findings: No Fx. This imaging study has been reviewed and interpreted by the ED physician pending official read. left knee xr Radiology Interpretation Completed By: ED Physician Summary of Radiographic Findings: Arthritis, no Fx. This imaging study has been reviewed and interpreted by the ED physician pending official read. left femur xr Radiology Interpretation Completed By: ED Physician Summary of Radiographic Findings: No Fx. This imaging study has been reviewed and interpreted by the ED physician pending official read. hip/pelvis xr Radiology Interpretation Completed By: ED Physician Summary of Radiographic Findings: No acute Fx. This imaging study has been reviewed and interpreted by the ED physician pending official read. - CT C-Spine CT CT Interpretation Completed By: Radiologist Summary of CT Findings: IMPRESSION: No acute cervical spine fracture or dislocation. This report was reviewed by the ED physician. Brain CT CT Interpretation Completed By: Radiologist Summary of CT Findings: IMPRESSION: No acute intracranial abnormality. This report was reviewed by the ED physician. c spine CT Interpretation Completed By: Radiologist Summary of CT Findings: IMPRESSION: No acute cervical spine fracture or dislocation. This report was reviewed by the ED physician. head CT Interpretation Completed By: Radiologist Summary of CT Findings: IMPRESSION: No acute intracranial abnormality. This report was reviewed by the ED physician. Re-Evaluation - Re-Evaluation First Eval Re-Evaluation Time: 07:00 Change: Improved Comment: Patient able to ambulate w/ steady gait w/o pain. plain films w/o fractures. Plan for discharge home Adult Trauma Course/Dx - Course Course Of Treatment: 84-year-old male with a history of dementia presents after a fall with left hip pain. Physical examination ecchymosis to left hip, and knee. GCS 14, appears at baseline given history of dementia. Reported mechanical fall out of bed. - Labs unremarkable aside from trace hematuria likely 2/2 catheterized specimen. - CT brain C-spine unremarkable, plain films of the chest, pelvis, left femur left knee and thoracic spine were obtained do not show any acute fracture. Patient able to ambulate without pain, discharged home - Diagnoses Provider Diagnoses: Fall, Left hip pain Discharge ED - Sign-Out/Discharge Documenting (check all that apply): Patient Departure - dc - Discharge Plan Condition: Stable Disposition: HOME Patient Education Materials: Fall Prevention for Older Adults (ED), Hip Pain ( ED) Referrals: Myrna Zimmerman DO [Primary Care Provider] - Additional Instructions: You were seen in the emergency department for a fall and hip pain. Your head CT did not show any bleed, your x-rays didn't show any obvious fractures. If any studies were not completed at the time of discharge you will be called with the relevant results. Please follow up with your primary care doctor in next 2-3 days and return to emergency department for worsening or concerning symptoms. It was a pleasure taking care of you today. - Billing Disposition and Condition Condition: STABLE Disposition: Home - Attestation Statements Document Initiated by Viviane: Yes Documenting Scribe: Heena Tejeda Provider For Whom Viviane is Documenting (Include Credential): MD Cara Rashidibesequiel Attestation: I, Heena Tejeda, scribed for Dr. Momo Tan MD on 08/09/19 at 0717. Scribe Documentation Reviewed: Yes Provider Attestation: The documentation as recorded by the Heena ray accurately reflects the service I personally performed and the decisions made by me, Dr. Momo Tan MD Status of Scribe Document: Viewed
[2019-08-09 06:03] LABS: ABS Eosinophils 0.4 10^3/ul (0-0.6); ABS Lymphocytes 1.7 10^3/ul (1.0-4.8); ABS Monocytes 0.7 10^3/ul (0-0.8); ABS Neutrophils 6.3 10^3/ul (1.5-7.7); Eosinophil % 4.2 %; Hematocrit 46 % (42-52); Hemoglobin 15.1 g/dL (14.0-18.0); Lymphocyte % 18.5 %; Mean Corpuscular HGB Conc 33 g/dL (31-36); Mean Corpuscular Hemoglobin 30 pg (27-31); Mean Corpuscular Volume 90 fL (80-94); Mean Platelet Volume 6.7 fL (7.4-10.4); Nucleated Red Blood Cells % 0.2; Platelet Count 194 10^3/uL (150-450); Red Blood Count 5.07 10^6 /uL (4.18-5.48); Red Cell Distribution Width 14 % (10-15)
[2019-08-09 06:09] LABS: INR 1.06 (0.82-1.09)
[2019-08-09 06:10] LABS: Urine Appearance Clear; Urine Bilirubin Negative (Negative); Urine Blood 1+ (Negative); Urine Color Yellow; Urine Glucose Negative (Negative); Urine Ketones Negative (Negative); Urine Nitrite Negative (Negative); Urine Protein Negative (Negative); Urine Urobilinogen Negative (Negative)
[2019-08-09 06:15] LABS: Urine Bacteria Absent (Absent); Urine Red Blood Cell 1+(3-5/hpf) (Absent); Urine White Blood Cell Absent (Absent)
[2019-08-09 06:19] LABS: Albumin 3.8 g/dL (3.2-5.2); Albumin/Globulin Ratio 1.7 (1-3); BUN/Creatinine Ratio 19.3 (8-20); EGFR African American 100.3 (>60); EGFR Non-African American 82.9 (>60); Globulin 2.3 g/dL (2-4); Potassium 3.8 mmol/L (3.5-5.0); Total Bilirubin 0.6 mg/dL (0.2-1.0); Total Protein 6.1 g/dL (6.4-8.9)
[2019-08-09 07:24] VITALS: BP 133/85
== END 2019-08-09 09:20 | disposition home or self-care (01) ==
LOC: ED 04:45
DX: M25.552 Pain in left hip (principal); W06.XXXA Fall from bed, initial encounter; Y92.122 Bedroom in nursing home as the place of occurrence of the external cause; I25.10 Atherosclerotic heart disease of native coronary artery without angina pectoris; E78.00 Pure hypercholesterolemia, unspecified; I10 Essential (primary) hypertension; Z87.891 Personal history of nicotine dependence; Z79.82 Long term (current) use of aspirin; Z79.899 Other long term (current) drug therapy
CPT/HCPCS: 36415; 70450; 71045; 72070; 72125; 80053; 81003; 81015; 85025; 85610; 99283

== ENCOUNTER 2020-10-06 06:55 | Inpatient (IN) ==
[2020-10-06] MEDS ORDERED: NS 0.9% 1000 ml BAG 1,000 ML IV ONE (07:53)
[2020-10-06] MEDS ORDERED: Labetalol IV 5 MG/ML 20 ml VIAL IV PUSH ONE (07:57)
[2020-10-06 08:11] LABS: ABS Eosinophils 0.1 10^3/ul (0-0.6); ABS Lymphocytes 1.6 10^3/ul (1.0-4.8); ABS Monocytes 0.6 10^3/ul (0-0.8); ABS Neutrophils 7.3 10^3/ul (1.5-7.7); Eosinophil % 0.9 %; Hematocrit 47 % (42-52); Hemoglobin 15.7 g/dL (14.0-18.0); Lymphocyte % 16.5 %; Mean Corpuscular HGB Conc 33 g/dL (31-36); Mean Corpuscular Hemoglobin 30 pg (27-31); Mean Corpuscular Volume 90 fL (80-94); Mean Platelet Volume 6.9 fL (7.4-10.4); Nucleated Red Blood Cells % 0.1; Platelet Count 208 10^3/uL (150-450); Red Blood Count 5.24 10^6 /uL (4.18-5.48); Red Cell Distribution Width 15 % (10-15); White Blood Count 9.7 10^3/uL (3.5-10.8)
[2020-10-06 08:27] LABS: ALT 15 U/L (7-52); AST 21 U/L (13-39); Albumin 4.1 g/dL (3.2-5.2); Albumin/Globulin Ratio 1.5 (1-3); Alkaline Phosphatase 88 U/L (34-104); Anion Gap 8 mmol/L (2-11); BUN/Creatinine Ratio 18.8 (8-20); Blood Urea Nitrogen 19 mg/dL (6-24); CO2 Carbon Dioxide 25 mmol/L (22-32); Calcium 9.4 mg/dL (8.6-10.3); Chloride 103 mmol/L (101-111); EGFR African American 85.4 (>60); EGFR Non-African American 70.5 (>60); Globulin 2.8 g/dL (2-4); Glucose 109 mg/dL (70-100); Sodium 136 mmol/L (135-145); Total Protein 6.9 g/dL (6.4-8.9)
[2020-10-06] MEDS ORDERED: Ondansetron 4 mg VIAL 2 MG/ML 2 ml VIAL IV PRN (09:47)
[2020-10-06] MEDS ORDERED: Morphine 2 MG/ML SYRINGE IV ONE (10:33)
[2020-10-06] MEDS ORDERED: Morphine 2 MG/ML SYRINGE IV PRN (10:41)
[2020-10-06 13:08] LABS: Troponin I 0.04 ng/mL (<0.03)
[2020-10-06] MEDS: Enalaprilat IV 1.25 mg/ml 1 ml VIAL (1.25 MG) IV SCH ×2 (13:24→18:08)
[2020-10-06] MEDS: NS 0.9% 1000 ml BAG 1,000 ML IV SCH (14:33)
[2020-10-06 15:52] LABS: Troponin I 0.05 ng/mL (<0.03)
[2020-10-06] MEDS: HYDROmorphone 1 MG/1 ML SYRINGE IV PRN (18:03)
[2020-10-06 19:03] LABS: Troponin I 0.05 ng/mL (<0.03)
[2020-10-06 22:11] LABS: Troponin I 0.05 ng/mL (<0.03)
[2020-10-07] MEDS: Latanoprost 0.005% 2.5 ml BTL BOTH EYES SCH ×2 (00:41→21:39)
[2020-10-07] MEDS: Enalaprilat IV 1.25 mg/ml 1 ml VIAL (1.25 MG) IV SCH ×3 (00:41→12:08)
[2020-10-07] MEDS: NS 0.9% 1000 ml BAG 1,000 ML IV SCH ×2 (03:50→21:26)
[2020-10-07 06:29] LABS: Calcium 8.5 mg/dL (8.6-10.3); Potassium 3.9 mmol/L (3.5-5.0)
[2020-10-07 06:30] LABS: ABS Basophils 0.1 10^3/ul (0-0.2); ABS Eosinophils 0.1 10^3/ul (0-0.6); ABS Lymphocytes 1.9 10^3/ul (1.0-4.8); ABS Monocytes 0.9 10^3/ul (0-0.8); ABS Neutrophils 8.1 10^3/ul (1.5-7.7); Eosinophil % 1.2 %; Hematocrit 46 % (42-52); Hemoglobin 15.3 g/dL (14.0-18.0); Lymphocyte % 16.8 %; Mean Corpuscular HGB Conc 33 g/dL (31-36); Mean Corpuscular Hemoglobin 31 pg (27-31); Mean Corpuscular Volume 92 fL (80-94); Mean Platelet Volume 7.6 fL (7.4-10.4); Platelet Count 174 10^3/uL (150-450); Red Blood Count 5.03 10^6 /uL (4.18-5.48); Red Cell Distribution Width 15 % (10-15); White Blood Count 11.1 10^3/uL (3.5-10.8)
[2020-10-07 06:34] LABS: BUN/Creatinine Ratio 13.9 (8-20); EGFR African American 113.3 (>60); EGFR Non-African American 93.7 (>60)
[2020-10-07] MEDS: levETIRAcetam 1000MG IVPREMIX 1,000 MG/100 ML BAG IVPB SCH ×2 (09:35→21:32)
[2020-10-07] MEDS: HYDROmorphone 1 MG/1 ML SYRINGE IV PRN (11:54)
[2020-10-08 06:40] LABS: ABS Eosinophils 0.2 10^3/ul (0-0.6); ABS Lymphocytes 2.2 10^3/ul (1.0-4.8); ABS Neutrophils 6.1 10^3/ul (1.5-7.7); Hematocrit 54 % (42-52); Hemoglobin 17.1 g/dL (14.0-18.0); Mean Corpuscular HGB Conc 32 g/dL (31-36); Mean Corpuscular Hemoglobin 30 pg (27-31); Mean Corpuscular Volume 95 fL (80-94); Mean Platelet Volume 7.2 fL (7.4-10.4); Platelet Count 184 10^3/uL (150-450); Red Blood Count 5.68 10^6 /uL (4.18-5.48); Red Cell Distribution Width 15 % (10-15); White Blood Count 9.5 10^3/uL (3.5-10.8)
[2020-10-08] MEDS: levETIRAcetam 1000MG IVPREMIX 1,000 MG/100 ML BAG IVPB SCH ×2 (09:52→20:26)
[2020-10-08] MEDS ORDERED: NS 0.9% 500 ml BAG 500 ML IV ONE (12:00)
[2020-10-08] MEDS ORDERED: NS 0.9% 1000 ml BAG 1,000 ML IV SCH (12:45)
[2020-10-08] MEDS: Latanoprost 0.005% 2.5 ml BTL BOTH EYES SCH (20:27)
[2020-10-09 05:50] LABS: ABS Eosinophils 0.2 10^3/ul (0-0.6); ABS Lymphocytes 1.7 10^3/ul (1.0-4.8); ABS Monocytes 0.6 10^3/ul (0-0.8); ABS Neutrophils 5.7 10^3/ul (1.5-7.7); Eosinophil % 2.3 %; Hematocrit 44 % (42-52); Hemoglobin 15.1 g/dL (14.0-18.0); Lymphocyte % 20.6 %; Mean Corpuscular HGB Conc 34 g/dL (31-36); Mean Corpuscular Hemoglobin 30 pg (27-31); Mean Corpuscular Volume 89 fL (80-94); Mean Platelet Volume 6.5 fL (7.4-10.4); Platelet Count 199 10^3/uL (150-450); Red Blood Count 4.99 10^6 /uL (4.18-5.48); Red Cell Distribution Width 15 % (10-15); White Blood Count 8.2 10^3/uL (3.5-10.8)
[2020-10-09 06:14] LABS: C Reactive Protein 11.94 mg/L (<8.01); Calcium 8.8 mg/dL (8.6-10.3); EGFR African American 113.3 (>60); EGFR Non-African American 93.7 (>60); Potassium 3.6 mmol/L (3.5-5.0)
[2020-10-09] MEDS: levETIRAcetam 1000MG IVPREMIX 1,000 MG/100 ML BAG IVPB SCH ×2 (09:14→20:43)
[2020-10-09 23:16] LABS: Urine Appearance Cloudy; Urine Bilirubin Negative (Negative); Urine Blood 2+ (Negative); Urine Color Yellow; Urine Glucose Negative (Negative); Urine Ketones Trace (Negative); Urine Nitrite Negative (Negative); Urine Protein Negative (Negative); Urine Specific Gravity 1.017 (1.010-1.030); Urine Urobilinogen Negative (Negative)
[2020-10-09] MEDS: Latanoprost 0.005% 2.5 ml BTL BOTH EYES SCH (23:23)
[2020-10-09 23:51] LABS: Urine Bacteria 1+ (Absent); Urine Red Blood Cell 3+(>10/hpf) (Absent); Urine Squamous Epithelial Cell Present (Absent); Urine White Blood Cell 3+(>20/hpf) (Absent)
[2020-10-10] MEDS: levETIRAcetam 1000MG IVPREMIX 1,000 MG/100 ML BAG IVPB SCH (09:13)
[2020-10-10] MEDS ORDERED: cefTRIAXone 1 gm/50 mL NS BAG 1 GM/50 ML BAG IVPB SCH (14:00)
[2020-10-10 16:37] VITALS: BP 127/55
== END 2020-10-10 17:50 | DRG 86 ==
LOC: ED 06:55 → SSU 12:43
PROVIDERS: ADMIT Student in an Organized Health Care Education/Training Program; ATTEND Pediatrics